=== PATIENT | male | born 1960 | race Caucasian/White ===

== ENCOUNTER 2019-02-11 12:11 | Outpatient (CLI) | payer BC, MEDICARE ==
[~2019-02-11 12:11] MED LIST: ALBU2.5V8 IH; ALPR1TAB6 PO; ASPI-253 PO; CARI350T PO; CRESTOR5 MG PO; ESOM40CA PO; FLUT1DIS3 IH; HYDROmorphone 2 MG/ML VIAL IV PRN; IV RINGERS,LACTATED 1000ML 1,000 ML IV SCH; LIDOCAINE 1% PF 2 ML VIAL. ID PRN; METF500T16 PO; METO-239 PO; MONT10TA6 PO; MORPHINE SULFATE 2 MG/ML VIAL. IV PRN; NITR0.4T SL; NITR1PAT73 TD; ONDANSETRON PF 4 MG/2 ML VIAL. IV PRN; OXYC20TA PO; OXYM10TA PO; OXYM40TA17 PO; PROCHLORPERAZINE 10 MG/2 ML VIAL. IV PRN; PROPOFOL 100 ML IV ONE; fentaNYL PF VIAL 100 MCG/2 ML VIAL IV PRN
[2019-02-11] MEDS ORDERED: PROPOFOL 20 ML IV ONE (12:35)
[2019-02-11] MEDS ORDERED: MIDAZOLAM HCL/PF 2 MG/2 ML VIAL. ONE (12:36)
[2019-02-11] MEDS ORDERED: KETAMINE HCL IN NACL, ISO-OSM 50 MG/5 ML SYRINGE ONE (12:36)
[2019-02-11] MEDS ORDERED: GADOBUTROL 10 MMOL/10 ML VIAL IV ONE (13:00)
[2019-02-11 14:40] VITALS: BP 130/58
--- NOTE | 2019-02-11 16:48 | RAD ---
MRI of the neck without and with contrast 02/11/2019 CLINICAL HISTORY: Swelling in the region of the left submandibular gland. TECHNIQUE: Unenhanced T1-weighted and inversion recovery sagittal, axial and coronal and diffusion-weighted axial images of the neck were obtained. After the intravenous administration of 10 cc of Gadavist, enhanced fat saturated T1-weighted sagittal, axial and coronal images were obtained. FINDINGS: Comparison is made to a CT scan of the neck dated 12/17/2018. The mucosal structures of the nasopharynx, oropharynx, hypopharynx and larynx are within normal limits. Fairly symmetric enlargement and fatty infiltration of both the parotid and submandibular glands is seen. No focal abnormality is noted. No abnormal soft tissue mass is seen. The visualized thyroid gland is within normal limits. Small reactive cervical lymph nodes are seen scattered throughout the neck. No cervical lymphadenopathy is noted. No abnormal fluid collection is seen. No area of abnormal contrast enhancement is seen. Moderate mucosal thickening is seen involving the right maxillary sinus. Degenerative changes are seen involving the uncovertebral and facet joints throughout the cervical disc spaces. IMPRESSION: Fairly symmetric enlargement and fatty infiltration of the parotid and submandibular glands is seen. No discrete mass lesion is noted. Electronically signed by: Marc Baeza MD (02/11/2019 4:45 PM) [id number]
== END 2019-02-11 14:42 | disposition home or self-care (01) ==
LOC: SURG 12:11
PROVIDERS: ATTEND Internal Medicine
DX: K11.1 Hypertrophy of salivary gland (principal)
CPT/HCPCS: 70543; J2250; J2704

== ENCOUNTER 2019-04-15 16:42 | Inpatient (IN) | payer BC, MEDICARE ==
[~2019-04-15] VITALS: Ht 175.3 cm; Wt 99.8 kg
[~2019-04-15 16:42] MED LIST changes: -HYDROmorphone 2 MG/ML VIAL IV PRN; -IV RINGERS,LACTATED 1000ML 1,000 ML IV SCH; -LIDOCAINE 1% PF 2 ML VIAL. ID PRN; +MONT10TA49 PO; -MONT10TA6 PO; -MORPHINE SULFATE 2 MG/ML VIAL. IV PRN; -ONDANSETRON PF 4 MG/2 ML VIAL. IV PRN; -PROCHLORPERAZINE 10 MG/2 ML VIAL. IV PRN; -PROPOFOL 100 ML IV ONE; -fentaNYL PF VIAL 100 MCG/2 ML VIAL IV PRN
--- NOTE | 2019-04-15 17:08 | PDOC1 ---
History and Physical Date of Admission Date of Admission DATE: 04/15/19 TIME: 17:07 Identification/Chief Complaint Chief Complaint Laryngeal edema Source Source: Chart review, Patient History of Present Illness History of Present Illness Mr Rutledge is a 58 year old male w/ PMHx Anxiety, Chronic pain, GERD, DM2?, COPD, CAD s/p stents, 2ppd smoker, SS throat cancer s/p treatment who presents to the ED from ENT for admission for throat infection. On laryngoscopy was noted with edematous laryngx and severe guy infection. He was seen by his PCP prior to this, had a negative throat culture for strep, but has dysphagia for a few days. Has previously had thrush, feels this is similar. Past Medical History Cardiovascular: CAD Pulmonary: COPD GI: GERD Heme/Onc: No pertinent hx Hepatobiliary: No pertinent hx Psych: Anxiety Musculoskeletal: low back pain Rheumatologic: No pertinent hx Infectious disease: Herpes zoster ENT: Other (Throat Ca) Renal/: No pertinent hx Endocrine: Diabetes Dermatology: No pertinent hx Past Surgical History Past Surgical History: Appendectomy, Arthroscopy, Cholecystectomy Family History Family History: High Cholestrol Social History Smoke: 2 packs per day ALCOHOL: rare Drugs: None Current Medications Current Medications Current Medications Methylprednisolone Sodium Succinate (SOLU-Medrol 125MG VIAL) 125 mg 1X ONCE IV ; Start 04/15/19 at 17:15; Stop 04/15/19 at 17:16 Famotidine (Pepcid Vial) 20 mg 1X ONCE IVP ; Start 04/15/19 at 17:15; Stop 04/15/19 at 17:16 Diphenhydramine HCl (Benadryl) 25 mg 1X ONCE IVP ; Start 04/15/19 at 17:15; Stop 04/15/19 at 17:16 Sodium Chloride 1,000 ml @ 1,000 mls/hr 1X ONCE IV ; Start 04/15/19 at 17:15; Stop 04/15/19 at 18:14; Status UNV Active Scripts Active Reported Soma (Carisoprodol) 350 Mg Tablet 1 Tab PO QHS Crestor (Rosuvastatin Calcium) 5 Mg Tablet 1.5 Mg PO QODAY Oxycodone Hcl 20 Mg Tablet 20 Mg PO PRN Q6-8HRS PRN Singulair Tablet (Montelukast Sodium) 10 Mg Tablet 10 Mg PO HS Ecotrin (Aspirin) 81 Mg Tablet.dr 81 Mg PO DAILY Nexium Capsule (Esomeprazole Magnesium) 40 Mg Capsule.dr 40 Mg PO DAILY Alprazolam 1 Mg Tablet 2 Mg PO HS Proair Hfa Inhaler (Albuterol Sulfate) 8.5 Gm Hfa.aer.ad 8.5 Gm IH DAILY Metoprolol Succinate ( Xl ) (Metoprolol Succinate) 25 Mg Tab.er.24h 12.5 Mg PO DAILY Metformin Hcl 500 Mg Tablet 500 Mg PO BID Advair 250-50 Diskus (Fluticasone/Salmeterol) 1 Each Disk.w.dev 1 Each IH DAILY Opana Er (Oxymorphone Hcl) 40 Mg Tab.er.12h 40 Mg PO TID Allergies Allergies: Coded Allergies: Iodinated Contrast- Oral and IV Dye (Verified Allergy, Severe, Swelling, 09/12/15) ROS General: YES: Fatigue, Malaise; No: Chills, Night Sweats, Appetite, Other PSYCHOLOGICAL ROS: YES: Anxiety; No: Behavioral Disorder, Concentration difficultie, Decreased libido, Depression, Disorientation, Hallucinations, Hostility, Irritablity, Memory difficulties, Mood Swings, Obsessive thoughts, Physical abuse, Sexual abuse, Sleep disturbances, Suicidal ideation, Other Eyes: No Blurry vision, No Decreased vision, No Double vision, No Dry eyes, No Excessive tearing, No Eye Pain, No Itchy Eyes, No Loss of vision, No Photophobia, No Scotomata, No Uses contacts, No Uses glasses, No Other HEENT: YES: Oral lesions, Sore Throat, Vocal changes; No: Heacaches, Visual Changes, Hearing change, Nasal congestion, Nasal discharge, Sinus pain, Epistaxis, Sneezing, Snoring, Tinnitus, Vertigo, Other ALLERGY AND IMMUNOLOGY: No: Hives, Insect Bite Sensitivity, Itchy/Watery Eyes, Nasal Congestion, Post Nasal Drip, Seasonal Allergies, Other Hematological and Lymphatic: No: Bleeding Problems, Blood Clots, Blood Transfusions, Brusing, Night Sweats, Pallor, Swollen Lymph Nodes, Other ENDOCRINE: No: Breast Changes, Galactorrhea, Hair Pattern Changes, Hot Flashes, Malaise/lethargy, Mood Swings, Palpitations, Polydipsia/polyuria, Skin Changes, Temperature Intolerance, Unexpected Weight Changes, Other Breast: No New/Changing Breast Lumps, No Nipple changes, No Nipple discharge, No Other Respiratory: No: Cough, Hemoptysis, Orthopnea, Pleuritic Pain, Shortness of patience ath, SOB with excertion, Sputum Changes, Stridor, Tachypnea, Wheezing, Other Cardiovascular: No Chest Pain, No Palpitations, No Orthopnea, No Paroxysmal Noc. Dyspnea, No Edema, No Lt Headedness, No Other Gastrointestinal: No Nausea, No Vomiting, No Abdominal Pain, No Diarrhea, No Constipation, No Melena, No Hematochezia, No Other Genitourinary: No Dysuria, No Frequency, No Incontinence, No Hematuria, No Retention, No Discharge, No Urgency, No Pain, No Flank Pain, No Other, No , No , No , No , No , No , No Physical Exam General: Alert, Oriented X3, Cooperative, No acute distress HEENT: Atraumatic, PERRLA, EOMI, Other (White plaques in oropharynx with surrounding erythema, Right cervical tender lymphadenopathy) Lungs: Other (scattered wheezes) Heart: S1S2, RRR, no gallops, no murmurs Abdomen: Normal bowel sounds, Soft, No tenderness, No hepatosplenomegaly, No masses Rectal Exam: not examined Extremities: No clubbing, No cyanosis, No edema, Normal pulses, No tenderness/swelling Skin: No rashes, No breakdown, No significant lesion Neuro: Normal gait, Normal speech, Strength at 5/5 X4 ext, Normal tone, Sensation intact, Cranial nerves 3-12 NL, Reflexes 2+ Psych/Mental Status: Mental status NL, Mood NL VTE Prophylaxis Ordered VTE Prophylaxis Devices: No VTE Pharmacological Prophylaxi: Yes Assessment/Plan Assessment/Plan A/P: Laryngeal swelling - steroids, benadryl, nebs. prn racemic epi. Consult ENT Thrush - will give fluconazole and oral mycelex muna Anxiety - cont xanxa Chronic pain - sees Dr. Forrester, cont regimen GERD - cont PPI DM2? - sliding scale while on steroids COPD - nebs CAD s/p stents - cont ASA 2ppd smoker - counseled on cessation, will place nicotine patch SS throat cancer - s/p treatment, ENT to see FEN - GI soft diet PPX - lovenox FULL CODE Inpatient for thrush with concern for laryngeal edema. ROBBIN DAVIDSON MD Apr 15, 2019 17:08
[2019-04-15] MEDS ORDERED: methylPREDNISolone SOD SUCC PF 125 MG/2 ML VIAL. IV ONE (17:15)
[2019-04-15] MEDS ORDERED: IV NORMAL SALINE 1000ML BAG 1,000 ML IV ONE (17:15)
[2019-04-15] MEDS ORDERED: FAMOTIDINE 20 MG/2 ML VIAL IVP ONE (17:15)
[2019-04-15] MEDS ORDERED: diphenhydrAMINE 50 MG/ML VIAL IVP ONE (17:15)
[2019-04-15 17:30] LABS: BASO % 0 % (0-3); EOS # 0.2 x10^3/uL (0.0-0.7); EOS % 1 % (0-3); HEMATOCRIT 46.6 % (39.0-53.0); HEMOGLOBIN 15.8 g/dL (13.0-17.5); LYMPH % 8 % (24-48); MEAN CORPUSCULAR HEMOGLOBIN 35 pg (25-35); MEAN CORPUSCULAR HGB CONC 34 g/dL (31-37); MEAN CORPUSCULAR VOLUME 103 fL (79-100); MONO # 1.1 x10^3/uL (0.0-1.1); MONO % 9 % (0-9); NEUT # 10.4 x10^3uL (1.8-7.7); NEUT % 82 % (31-73); PLATELET COUNT 213 x10^3/uL (140-400); RED BLOOD COUNT 4.51 x10^6/uL (4.30-5.70); RED CELL DISTRIBUTION WIDTH 13.9 % (11.5-14.5); WHITE BLOOD COUNT 12.6 x10^3/uL (4.0-11.0)
[2019-04-15] MEDS ORDERED: ONDANSETRON PF 4 MG/2 ML VIAL. IV PRN (17:30)
[2019-04-15] MEDS ORDERED: MORPHINE SULFATE 4 MG/ML VIAL. IV PRN (17:30)
--- NOTE | 2019-04-15 17:31 | PHYS DOC ---
Adult General Chief Complaint Chief Complaint: OTHER COMPLAINTS HPI HPI Patient is a 58 year old male with history of throat cancer and treated a couple years ago who presents to the ED today complaining of throat infection. Patient states he was sent to ENT for admission for throat infection. Review of Systems Review of Systems Constitutional: Denies fever or chills [] Eyes: Denies change in visual acuity, redness, or eye pain [] HENT: Reports throat infection. Denies nasal congestion Respiratory: Denies cough or shortness of breath [] Cardiovascular: No additional information not addressed in HPI [] GI: Denies abdominal pain, nausea, vomiting, bloody stools or diarrhea [] : Denies dysuria or hematuria [] Musculoskeletal: Denies back pain or joint pain [] Integument: Denies rash or skin lesions [] Neurologic: Denies headache, focal weakness or sensory changes [] All other systems were reviewed and found to be within normal limits, except as documented in this note. Current Medications Current Medications Current Medications Medications (Trade) Dose Ordered Sig/Juanita Start Time Stop Time Status Last Admin Dose Admin Diphenhydramine HCl (Benadryl) 25 mg 1X ONCE 04/15/19 17:15 04/15/19 17:16 DC Famotidine (Pepcid Vial) 20 mg 1X ONCE 04/15/19 17:15 04/15/19 17:16 DC Methylprednisolone Sodium Succinate (SOLU-Medrol 125MG VIAL) 125 mg 1X ONCE 04/15/19 17:15 04/15/19 17:16 DC Morphine Sulfate (Morphine Sulfate) 4 mg PRN Q2HR PRN 04/15/19 17:30 04/16/19 17:29 Ondansetron HCl (Zofran) 4 mg PRN Q8HRS PRN 04/15/19 17:30 04/16/19 17:29 Sodium Chloride 1,000 ml @ 1,000 mls/hr 1X ONCE 04/15/19 17:15 04/15/19 18:14 Allergies Allergies Allergies Coded Allergies Type Severity Reaction Last Updated Verified Iodinated Contrast- Oral and IV Dye Allergy Severe Swelling 09/12/15 Yes Physical Exam Physical Exam Constitutional: Well developed, well nourished, no acute distress, non-toxic appearance. [] HENT: Normocephalic, atraumatic, bilateral external ears normal, oropharynx mo ist, nose normal. Airway is open. Midline uvular Moderate amount of white patches noted on the throat. Eyes: PERRLA, EOMI, conjunctiva normal, no discharge. [] Neck: Normal range of motion, no tenderness, supple, no stridor. [] Cardiovascular:Heart rate regular rhythm, no murmur [] Lungs & Thorax: Bilateral breath sounds clear to auscultation [] Abdomen: Bowel sounds normal, soft, no tenderness, no masses, no pulsatile masses. [] Skin: Warm, dry, no erythema, no rash. [] Back: No tenderness, no CVA tenderness. [] Extremities: No tenderness, no cyanosis, no clubbing, ROM intact, no edema. [] Neurologic: Alert and oriented X 3, normal motor function, normal sensory function, no focal deficits noted. [] Psychologic: Affect normal, judgement normal, mood normal. [] Current Patient Data Lab Values Laboratory Tests Test 04/15/19 17:20 White Blood Count 12.6 x10^3/uL (4.0-11.0) H Red Blood Count 4.51 x10^6/uL (4.30-5.70) Hemoglobin 15.8 g/dL (13.0-17.5) Hematocrit 46.6 % (39.0-53.0) Mean Corpuscular Volume 103 fL (79-100) H Mean Corpuscular Hemoglobin 35 pg (25-35) Mean Corpuscular Hemoglobin Concent 34 g/dL (31-37) Red Cell Distribution Width 13.9 % (11.5-14.5) Platelet Count 213 x10^3/uL (140-400) Neutrophils (%) (Auto) 82 % (31-73) H Lymphocytes (%) (Auto) 8 % (24-48) L Monocytes (%) (Auto) 9 % (0-9) Eosinophils (%) (Auto) 1 % (0-3) Basophils (%) (Auto) 0 % (0-3) Neutrophils # (Auto) 10.4 x10^3uL (1.8-7.7) H Lymphocytes # (Auto) 1.0 x10^3/uL (1.0-4.8) Monocytes # (Auto) 1.1 x10^3/uL (0.0-1.1) Eosinophils # (Auto) 0.2 x10^3/uL (0.0-0.7) Basophils # (Auto) 0.0 x10^3/uL (0.0-0.2) Laboratory Tests 04/15/19 17:20 EKG EKG [] Radiology/Procedures Radiology/Procedures [] Course & Med Decision Making Course & Med Decision Making Pertinent Labs and Imaging studies reviewed. (See chart for details) This is a 58-year-old male patient who presents to the ED today for throat infection, patient has history of throat cancer. He was sent to the ED to be a dmitted. very upset stating they were sent to be admitted and not to be seen in the ED. I spoke with Dr. Ibrahim who stated there was concern for airway edema hence the reason they need to be seen in the ED. He requested we access patient, get labwork as well as get an x-rays of the neck and give him steroids. Patient's airway is open.He is currently drinking Sprite which he will not give up. Steroids were ordered. Dragon Disclaimer Dragon Disclaimer This electronic medical record was generated, in whole or in part, using a voice recognition dictation system. Departure Departure Impression: Primary Impression: Laryngeal edema Additional Impression: Throat infection Disposition: ADMITTED INPATIENT Condition: STABLE Referrals: JASMINA CEBALLOS MD (PCP) Problem Qualifiers OJHNNY GAN APRN Apr 15, 2019 17:31
[2019-04-15 17:45] LABS: CALCIUM 9.6 mg/dL (8.5-10.1); CREATININE 0.9 mg/dL (0.7-1.3); POTASSIUM 3.5 mmol/L (3.5-5.1)
[2019-04-15 17:50] LABS: TOTAL BILIRUBIN 0.8 mg/dL (0.2-1.0)
[2019-04-15 18:15] VITALS: BP 127/68
[2019-04-15 19:00] VITALS: BP 108/63
[2019-04-15] MEDS ORDERED: RANI-376 PO (19:45)
[2019-04-15] MEDS ORDERED: ALPR0.5T PO (19:45)
[2019-04-15] MEDS ORDERED: ASPI-612 PO (19:45)
[2019-04-15] MEDS ORDERED: AZIT250T6 PO (19:45)
[2019-04-15] MEDS ORDERED: OMEP40CA5 PO (19:45)
[2019-04-15] MEDS ORDERED: ALBUTEROL SULFATE 2.5 MG/3 ML NEBU. NEB PRN (20:00)
[2019-04-15] MEDS ORDERED: ALPRAZolam 0.5 MG TABLET PO PRN (20:00)
[2019-04-15] MEDS ORDERED: diphenhydrAMINE 50 MG/ML VIAL IVP PRN (20:00)
[2019-04-15] MEDS ORDERED: NICOTINE 21MG PATCH. TD PRN (20:15)
--- NOTE | 2019-04-15 20:22 | NUR ---
Patient admission Pt arrived to the unit a little before shift change. Family at bedside. Patient information guide packet was explained and given to pt. All questions and concerns regarding pt's POC was addressed and answered at this time. Pt and family verbalized understanding. Will continue to monitor pt closely.
[2019-04-15] MEDS ORDERED: DEXTROSE 50% 25 GM / 50ML DISP.SYRIN. IV PRN (20:45)
[2019-04-15] MEDS: FLUCONAZOLE 100 MG TABLET. PO SCH (20:55)
[2019-04-15] MEDS: oxyCODONE ER 15 MG TAB.ER.12H PO SCH (21:00)
[2019-04-15] MEDS ORDERED: ASPIRIN ENTERIC COATED 81 MG TABLET.DR. PO SCH (21:00)
[2019-04-15] MEDS ORDERED: FAMOTIDINE 20 MG TABLET. PO PRN (21:00)
[2019-04-15] MEDS: IPRATRPIUM/ALBUTEROL 0.5/2.5MG 3 ML NEBU. NEB SCH (21:00)
[2019-04-15] MEDS: methylPREDNISolone SOD SUCC PF 40 MG/ML VIAL. IV SCH (22:08)
[2019-04-15] MEDS: CLOTRIMAZOLE 10 MG TROCHE. MM SCH (22:08)
[2019-04-15 23:00] VITALS: BP 119/51
[2019-04-16 03:00] VITALS: BP 140/63
[2019-04-16] MEDS: CLOTRIMAZOLE 10 MG TROCHE. MM SCH ×4 (06:22→18:00)
[2019-04-16] MEDS: methylPREDNISolone SOD SUCC PF 40 MG/ML VIAL. IV SCH ×2 (06:23→13:11)
[2019-04-16 07:00] VITALS: BP 121/53
[2019-04-16] MEDS ORDERED: PANTOPRAZOLE 40 MG TABLET.DR. PO SCH (07:30)
[2019-04-16] MEDS: IPRATRPIUM/ALBUTEROL 0.5/2.5MG 3 ML NEBU. NEB SCH ×3 (07:46→16:28)
--- NOTE | 2019-04-16 07:47 | PDOC ---
PROGRESS NOTES Subjective Subjective Patient reports feeling much improved overnight. He reports throat pain is much improved. He is now able to swallow more. Objective Objective Vital Signs Date Time Temp Pulse Resp B/P (MAP) Pulse Ox O2 Delivery O2 Flow Rate FiO2 04/16/19 03:00 97.7 63 18 140/63 (88) 91 Room Air 97.7 Physical Exam Allegies Allergies Coded Allergies Type Severity Reaction Last Updated Verified Iodinated Contrast- Oral and IV Dye Allergy Severe Swelling 09/12/15 Yes Physical Exam Nose: septum deviated to right Oral Cavity/Oropharynx: White patches with surrounding erythema persisted along distal soft palate, lateral pharyngeal wall bilaterally, Tongue is brown discoloration with thickened exudate Abdomen: Normal bowel sounds, Soft, No tenderness, No masses Heart: Regular rate Extremities: No clubbing, No cyanosis, No edema, Normal pulses, No tende rness/swelling General: Alert, Oriented X3, Cooperative, No acute distress HEENT: Atraumatic, PERRLA, EOMI, Other (White plaques in oropharynx with surrounding erythema, Right cervical tender lymphadenopathy) Lungs: Other (scattered wheezes) Neuro: Normal gait, Normal speech, Strength at 5/5 X4 ext, Normal tone, Sensation intact, Cranial nerves 3-12 NL, Reflexes 2+ Psych/Mental Status: Mental status NL, Mood NL Skin: No rashes, No breakdown, No significant lesion COMMENT Procedure Note: Flexible Fiberoptic laryngoscopy Findings: Whitish exudate continues to be present covering larynx and right pyriform sinus. This is also present in nasopharynx. Normal vocal cord mobility. Epiglottis edema has significantly improved compared to yesterday Description: I anesthetized nasal mucosa with 4% lidocaine/Afrin mixture. I then used fiberoptic laryngoscope through left nasal cavity to visualize nasopharynx, oropharynx, base of tongue, laryngeal structures. Findings as above. Patient tolerated procedure well. 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 He presented back to ENT clinic yesterday with acute oropharyngeal and laryngeal candidiasis with severe supraglottic edema. Patient's airway swelling has improved with IV steroids. Laryngeal and oropharyngeal candidiasis persist. He is tolerating oral intake. Plan Plan of Care 1. Patient desires hospital discharge as soon as possible. Overall, laryngeal edema has improved. However, laryngeal and oropharyngeal candidiasis has not improved. 2. Patient to continue clotrimazole 5 times daily and diflucan 100mg daily. 3. Discussed with patient continued observation. If continues to improve, may consider discharge this evening after completing another dose of steroids, 24 hours of antifungal medications. Comment Review of Relevant I have reviewed the following items bienvenido (where applicable) has been applied. Labs Laboratory Tests Test 04/15/19 17:20 04/15/19 20:47 White Blood Count 12.6 x10^3/uL (4.0-11.0) Red Blood Count 4.51 x10^6/uL (4.30-5.70) Hemoglobin 15.8 g/dL (13.0-17.5) Hematocrit 46.6 % (39.0-53.0) Mean Corpuscular Volume 103 fL (79-100) Mean Corpuscular Hemoglobin 35 pg (25-35) Mean Corpuscular Hemoglobin Concent 34 g/dL (31-37) Red Cell Distribution Width 13.9 % (11.5-14.5) Platelet Count 213 x10^3/uL (140-400) Neutrophils (%) (Auto) 82 % (31-73) Lymphocytes (%) (Auto) 8 % (24-48) Monocytes (%) (Auto) 9 % (0-9) Eosinophils (%) (Auto) 1 % (0-3) Basophils (%) (Auto) 0 % (0-3) Neutrophils # (Auto) 10.4 x10^3uL (1.8-7.7) Lymphocytes # (Auto) 1.0 x10^3/uL (1.0-4.8) Monocytes # (Auto) 1.1 x10^3/uL (0.0-1.1) Eosinophils # (Auto) 0.2 x10^3/uL (0.0-0.7) Basophils # (Auto) 0.0 x10^3/uL (0.0-0.2) Sodium Level 140 mmol/L (136-145) Potassium Level 3.5 mmol/L (3.5-5.1) Chloride Level 100 mmol/L (98-107) Carbon Dioxide Level 31 mmol/L (21-32) Anion Gap 9 (6-14) Blood Urea Nitrogen 7 mg/dL (8-26) Creatinine 0.9 mg/dL (0.7-1.3) Estimated GFR (Cockcroft-Gault) 87.0 BUN/Creatinine Ratio 8 (6-20) Glucose Level 151 mg/dL (70-99) Lactic Acid Level 1.6 mmol/L (0.4-2.0) Calcium Level 9.6 mg/dL (8.5-10.1) Total Bilirubin 0.8 mg/dL (0.2-1.0) Aspartate Amino Transf (AST/SGOT) 11 U/L (15-37) Alanine Aminotransferase (ALT/SGPT) 18 U/L (16-63) Alkaline Phosphatase 94 U/L (46-116) Total Protein 8.0 g/dL (6.4-8.2) Albumin 4.0 g/dL (3.4-5.0) Albumin/Globulin Ratio 1.0 (1.0-1.7) Glucose (Fingerstick) 198 mg/dL (70-99) Medications Current Medications Albuterol Sulfate (Ventolin Neb Soln) 2.5 mg PRN Q6HRS PRN NEB SHORTNESS OF BREATH Last administered on 04/15/19at 22:03; Start 04/15/19 at 20:00 Albuterol/ Ipratropium (Duoneb) 3 ml RTQID NEB ; Start 04/15/19 at 21:00 Alprazolam (Xanax) 0.5 mg PRN QHS PRN PO INSOMNIA Last administered on 04/15/19at 20:54; Start 04/15/19 at 20:00 Aspirin (Ecotrin) 81 mg HS PO Last administered on 04/15/19at 20:53; Start 04/15/19 at 21:00 Azithromycin (Zithromax) 250 mg DAILY PO ; Start 04/16/19 at 09:00 Clotrimazole (Mycelex) 10 mg 5XDAY MM Last administered on 04/16/19at 06:22; Start 04/15/19 at 22:00 Dextrose (Dextrose 50%-Water Syringe) 12.5 gm PRN Q15MIN PRN IV SEE COMMENTS; Start 04/15/19 at 20:45 Diphenhydramine HCl (Benadryl) 25 mg 1X ONCE IVP Last administered on 04/15/19at 17:48; Start 04/15/19 at 17:15; Stop 04/15/19 at 17:16; Status DC Diphenhydramine HCl (Benadryl) 25 mg PRN Q6HRS PRN IVP ITCHING; Start 04/15/19 at 20:00 Famotidine (Pepcid Vial) 20 mg 1X ONCE IVP Last administered on 04/15/19at 17:48; Start 04/15/19 at 17:15; Stop 04/15/19 at 17:16; Status DC Famotidine (Pepcid) 20 mg PRN DAILY PRN PO HEARTBURN/GAS; Start 04/15/19 at 21:00 Fluconazole (Diflucan) 100 mg DAILY PO Last administered on 04/15/19at 20:55; Start 04/15/19 at 20:45 Insulin Human Lispro (HumaLOG) 0-5 UNITS TIDWMEALS SQ ; Start 04/16/19 at 08:00 Methylprednisolone Sodium Succinate (SOLU-Medrol 40MG VIAL) 40 mg Q8HRS IV Last administered on 04/16/19at 06:23; Start 04/15/19 at 22:00 Methylprednisolone Sodium Succinate (SOLU-Medrol 125MG VIAL) 125 mg 1X ONCE IV Last administered on 04/15/19at 17:48; Start 04/15/19 at 17:15; Stop 04/15/19 at 17:16; Status DC Metoprolol Succinate (Toprol Xl) 12.5 mg DAILY PO ; Start 04/16/19 at 09:00 Morphine Sulfate (Morphine Sulfate) 4 mg PRN Q2HR PRN IV PAIN; Start 04/15/19 at 17:30; Stop 04/16/19 at 17:29 Nicotine (Nicoderm Cq 21mg) 1 patch DAILY TD ; Start 04/16/19 at 09:00; Stop 04/16/19 at 09:00; Status DC Nicotine (Nicoderm Cq 21mg) 1 patch PRN DAILY PRN TD SMOKING CESSATION Last administered on 04/15/19at 20:55; Start 04/15/19 at 20:15 Ondansetron HCl (Zofran) 4 mg PRN Q8HRS PRN IV NAUSEA/VOMITING; Start 04/15/19 at 17:30; Stop 04/17/19 at 17:28 Oxycodone HCl (OxyCONTIN) 60 mg Q12HR PO ; Start 04/15/19 at 21:00 Oxycodone HCl (Roxicodone) 30 mg PRN Q4HRS PRN PO SEVERE PAIN Last administered on 04/16/19at 03:48; Start 04/15/19 at 20:15 Pantoprazole Sodium (Protonix) 40 mg DAILYAC PO ; Start 04/16/19 at 07:30 Sodium Chloride 1,000 ml @ 1,000 mls/hr 1X ONCE IV Last administered on 04/15/19at 17:47; Start 04/15/19 at 17:15; Stop 04/15/19 at 18:14; Status DC Vitals/I & O Vital Sign - Last 24 Hours 04/15/19 04/15/19 04/15/19 04/15/19 17:20 18:15 19:00 20:09 Temp 98.5 98.4 98.8 98.5 98.4 98.8 Pulse 76 72 70 Resp 18 16 18 B/P (MAP) 168/87 (114) 127/68 (87) 108/63 (78) Pulse Ox 97 94 96 O2 Delivery Room Air Room Air Room Air Room Air 04/15/19 04/15/19 04/15/19 04/16/19 21:54 22:04 23:00 03:00 Temp 97.7 97.7 97.7 97.7 Pulse 69 63 Resp 18 18 B/P (MAP) 119/51 (73) 140/63 (88) Pulse Ox 96 94 95 91 O2 Delivery Room Air Room Air Room Air Room Air CARRIE STEWART MD Apr 16, 2019 07:47
[2019-04-16] MEDS: INSULIN LISPRO 300 UNITS/3 ML INSULN.PEN. SQ SCH ×3 (08:00→17:00)
[2019-04-16] MEDS: FLUCONAZOLE 100 MG TABLET. PO SCH (08:57)
[2019-04-16] MEDS: oxyCODONE ER 15 MG TAB.ER.12H PO SCH (09:00)
[2019-04-16] MEDS ORDERED: METOPROLOL SUCC 24HR ER 25 MG TAB.ER.24H. PO SCH (09:00)
[2019-04-16] MEDS ORDERED: AZITHROMYCIN 250 MG TABLET. PO SCH (09:00)
[2019-04-16] MEDS ORDERED: NICOTINE 21MG PATCH. TD SCH (09:00)
--- NOTE | 2019-04-16 09:00 | RAD ---
EXAM: CERVICAL SPINE 2-3V. HISTORY: Head/neck cancer, dyspnea. COMPARISON: None. FINDINGS: The epiglottis is thickened. There is no prevertebral soft tissue swelling. Carotid atherosclerotic calcifications are noted. No fractures are identified. There is a mild cervical dextrocurvature. Degenerative disc disease is mild from C4 through C7. Facet osteoarthritis is moderate from C2 through C4. IMPRESSION: 1. Epiglottic thickening most likely reflects posttreatment change. Ongoing clinical follow-up of dyspnea or dysphagia is recommended. 2. No suspicious lesions by radiographs. Degenerative changes as above. Electronically signed by: Jasmin Vidal MD (04/16/2019 8:57 AM) [facility]
--- NOTE | 2019-04-16 10:24 | PDOC ---
PROGRESS NOTES History of Present Illness History of Present Illness 58 year old male with history of T1N0M0 left vocal cord cancer s/p XRT in 2015. He presented back to ENT clinic 04/14 with acute oropharyngeal and laryngeal candidiasis with severe supraglottic edema. Patient's airway swelling has improved with IV steroids. Laryngeal and oropharyngeal candidiasis noted VTE Prophylaxis Ordered VTE Prophylaxis Devices: No VTE Pharmacological Prophylaxi: Yes Assessment/Plan Assessment/Plan Laryngeal swelling - steroids, benadryl, nebs. prn racemic epi. ENT following Thrush - will give fluconazole and oral mycelex muna Anxiety - cont xanxa Chronic pain - sees Dr. Forrester, cont regimen GERD - cont PPI DM2? - sliding scale while on steroids COPD - nebs CAD s/p stents - cont ASA 2ppd smoker - counseled on cessation, will place nicotine patch SS throat cancer - s/p treatment, ENT to see FEN - GI soft diet PPX - lovenox FULL CODE Inpatient for thrush with concern for laryngeal edema. glucose uncontrolled 04/16, will monitor Vitals Vitals Vital Signs Date Time Temp Pulse Resp B/P (MAP) Pulse Ox O2 Delivery O2 Flow Rate FiO2 04/16/19 09:00 16 Room Air 04/16/19 08:58 72 121/53 04/16/19 07:46 95 04/16/19 07:00 97.5 97.5 Physical Exam General: Alert, Oriented X3, Cooperative, No acute distress Heart: Regular rate Lungs: Clear Abdomen: Normal bowel sounds, Soft, No tenderness, No masses Extremities: No clubbing, No cyanosis, No edema, Normal pulses, No tenderness/swelling Skin: No rashes, No breakdown, No significant lesion Labs LABS Laboratory Tests Test 04/15/19 17:20 04/15/19 20:47 04/16/19 07:54 White Blood Count 12.6 x10^3/uL (4.0-11.0) Red Blood Count 4.51 x10^6/uL (4.30-5.70) Hemoglobin 15.8 g/dL (13.0-17.5) Hematocrit 46.6 % (39.0-53.0) Mean Corpuscular Volume 103 fL (79-100) Mean Corpuscular Hemoglobin 35 pg (25-35) Mean Corpuscular Hemoglobin Concent 34 g/dL (31-37) Red Cell Distribution Width 13.9 % (11.5-14.5) Platelet Count 213 x10^3/uL (140-400) Neutrophils (%) (Auto) 82 % (31-73) Lymphocytes (%) (Auto) 8 % (24-48) Monocytes (%) (Auto) 9 % (0-9) Eosinophils (%) (Auto) 1 % (0-3) Basophils (%) (Auto) 0 % (0-3) Neutrophils # (Auto) 10.4 x10^3uL (1.8-7.7) Lymphocytes # (Auto) 1.0 x10^3/uL (1.0-4.8) Monocytes # (Auto) 1.1 x10^3/uL (0.0-1.1) Eosinophils # (Auto) 0.2 x10^3/uL (0.0-0.7) Basophils # (Auto) 0.0 x10^3/uL (0.0-0.2) Sodium Level 140 mmol/L (136-145) Potassium Level 3.5 mmol/L (3.5-5.1) Chloride Level 100 mmol/L (98-107) Carbon Dioxide Level 31 mmol/L (21-32) Anion Gap 9 (6-14) Blood Urea Nitrogen 7 mg/dL (8-26) Creatinine 0.9 mg/dL (0.7-1.3) Estimated GFR (Cockcroft-Gault) 87.0 BUN/Creatinine Ratio 8 (6-20) Glucose Level 151 mg/dL (70-99) Lactic Acid Level 1.6 mmol/L (0.4-2.0) Calcium Level 9.6 mg/dL (8.5-10.1) Total Bilirubin 0.8 mg/dL (0.2-1.0) Aspartate Amino Transf (AST/SGOT) 11 U/L (15-37) Alanine Aminotransferase (ALT/SGPT) 18 U/L (16-63) Alkaline Phosphatase 94 U/L (46-116) Total Protein 8.0 g/dL (6.4-8.2) Albumin 4.0 g/dL (3.4-5.0) Albumin/Globulin Ratio 1.0 (1.0-1.7) Glucose (Fingerstick) 198 mg/dL (70-99) 146 mg/dL (70-99) Assessment and Plan Assessmemt and Plan Problems Medical Problems: (1) Laryngeal edema Status: Acute (2) Throat infection Status: Acute Comment Review of Relevant I have reviewed the following items bienvenido (where applicable) has been applied. Labs Laboratory Tests Test 04/15/19 17:20 04/15/19 20:47 04/16/19 07:54 White Blood Count 12.6 x10^3/uL (4.0-11.0) Red Blood Count 4.51 x10^6/uL (4.30-5.70) Hemoglobin 15.8 g/dL (13.0-17.5) Hematocrit 46.6 % (39.0-53.0) Mean Corpuscular Volume 103 fL (79-100) Mean Corpuscular Hemoglobin 35 pg (25-35) Mean Corpuscular Hemoglobin Concent 34 g/dL (31-37) Red Cell Distribution Width 13.9 % (11.5-14.5) Platelet Count 213 x10^3/uL (140-400) Neutrophils (%) (Auto) 82 % (31-73) Lymphocytes (%) (Auto) 8 % (24-48) Monocytes (%) (Auto) 9 % (0-9) Eosinophils (%) (Auto) 1 % (0-3) Basophils (%) (Auto) 0 % (0-3) Neutrophils # (Auto) 10.4 x10^3uL (1.8-7.7) Lymphocytes # (Auto) 1.0 x10^3/uL (1.0-4.8) Monocytes # (Auto) 1.1 x10^3/uL (0.0-1.1) Eosinophils # (Auto) 0.2 x10^3/uL (0.0-0.7) Basophils # (Auto) 0.0 x10^3/uL (0.0-0.2) Sodium Level 140 mmol/L (136-145) Potassium Level 3.5 mmol/L (3.5-5.1) Chloride Level 100 mmol/L (98-107) Carbon Dioxide Level 31 mmol/L (21-32) Anion Gap 9 (6-14) Blood Urea Nitrogen 7 mg/dL (8-26) Creatinine 0.9 mg/dL (0.7-1.3) Estimated GFR (Cockcroft-Gault) 87.0 BUN/Creatinine Ratio 8 (6-20) Glucose Level 151 mg/dL (70-99) Lactic Acid Level 1.6 mmol/L (0.4-2.0) Calcium Level 9.6 mg/dL (8.5-10.1) Total Bilirubin 0.8 mg/dL (0.2-1.0) Aspartate Amino Transf (AST/SGOT) 11 U/L (15-37) Alanine Aminotransferase (ALT/SGPT) 18 U/L (16-63) Alkaline Phosphatase 94 U/L (46-116) Total Protein 8.0 g/dL (6.4-8.2) Albumin 4.0 g/dL (3.4-5.0) Albumin/Globulin Ratio 1.0 (1.0-1.7) Glucose (Fingerstick) 198 mg/dL (70-99) 146 mg/dL (70-99) Laboratory Tests Test 04/15/19 17:20 04/15/19 20:47 04/16/19 07:54 White Blood Count 12.6 x10^3/uL (4.0-11.0) Red Blood Count 4.51 x10^6/uL (4.30-5.70) Hemoglobin 15.8 g/dL (13.0-17.5) Hematocrit 46.6 % (39.0-53.0) Mean Corpuscular Volume 103 fL (79-100) Mean Corpuscular Hemoglobin 35 pg (25-35) Mean Corpuscular Hemoglobin Concent 34 g/dL (31-37) Red Cell Distribution Width 13.9 % (11.5-14.5) Platelet Count 213 x10^3/uL (140-400) Neutrophils (%) (Auto) 82 % (31-73) Lymphocytes (%) (Auto) 8 % (24-48) Monocytes (%) (Auto) 9 % (0-9) Eosinophils (%) (Auto) 1 % (0-3) Basophils (%) (Auto) 0 % (0-3) Neutrophils # (Auto) 10.4 x10^3uL (1.8-7.7) Lymphocytes # (Auto) 1.0 x10^3/uL (1.0-4.8) Monocytes # (Auto) 1.1 x10^3/uL (0.0-1.1) Eosinophils # (Auto) 0.2 x10^3/uL (0.0-0.7) Basophils # (Auto) 0.0 x10^3/uL (0.0-0.2) Sodium Level 140 mmol/L (136-145) Potassium Level 3.5 mmol/L (3.5-5.1) Chloride Level 100 mmol/L (98-107) Carbon Dioxide Level 31 mmol/L (21-32) Anion Gap 9 (6-14) Blood Urea Nitrogen 7 mg/dL (8-26) Creatinine 0.9 mg/dL (0.7-1.3) Estimated GFR (Cockcroft-Gault) 87.0 BUN/Creatinine Ratio 8 (6-20) Glucose Level 151 mg/dL (70-99) Lactic Acid Level 1.6 mmol/L (0.4-2.0) Calcium Level 9.6 mg/dL (8.5-10.1) Total Bilirubin 0.8 mg/dL (0.2-1.0) Aspartate Amino Transf (AST/SGOT) 11 U/L (15-37) Alanine Aminotransferase (ALT/SGPT) 18 U/L (16-63) Alkaline Phosphatase 94 U/L (46-116) Total Protein 8.0 g/dL (6.4-8.2) Albumin 4.0 g/dL (3.4-5.0) Albumin/Globulin Ratio 1.0 (1.0-1.7) Glucose (Fingerstick) 198 mg/dL (70-99) 146 mg/dL (70-99) Medications Current Medications Methylprednisolone Sodium Succinate (SOLU-Medrol 125MG VIAL) 125 mg 1X ONCE IV Last administered on 04/15/19at 17:48; Start 04/15/19 at 17:15; Stop 04/15/19 at 17:16; Status DC Famotidine (Pepcid Vial) 20 mg 1X ONCE IVP Last administered on 04/15/19at 17:48; Start 04/15/19 at 17:15; Stop 04/15/19 at 17:16; Status DC Diphenhydramine HCl (Benadryl) 25 mg 1X ONCE IVP Last administered on 04/15/19at 17:48; Start 04/15/19 at 17:15; Stop 04/15/19 at 17:16; Status DC Sodium Chloride 1,000 ml @ 1,000 mls/hr 1X ONCE IV Last administered on 04/15/19 17:47; Start 04/15/19 at 17:15; Stop 04/15/19 at 18:14; Status DC Ondansetron HCl (Zofran) 4 mg PRN Q8HRS PRN IV NAUSEA/VOMITING; Start 04/15/19 at 17:30; Stop 04/17/19 at 17:28 Morphine Sulfate (Morphine Sulfate) 4 mg PRN Q2HR PRN IV PAIN; Start 04/15/19 at 17:30; Stop 04/16/19 at 17:29 Albuterol Sulfate (Ventolin Neb Soln) 2.5 mg PRN Q6HRS PRN NEB SHORTNESS OF BREATH Last administered on 04/15/19 22:03; Start 04/15/19 at 20:00 Alprazolam (Xanax) 0.5 mg PRN QHS PRN PO INSOMNIA Last administered on 04/15/19 20:54; Start 04/15/19 at 20:00 Aspirin (Ecotrin) 81 mg HS PO Last administered on 04/15/19 20:53; Start 04/15/19 at 21:00 Azithromycin (Zithromax) 250 mg DAILY PO Last administered on 04/16/19 08:57; Start 04/16/19 at 09:00 Metoprolol Succinate (Toprol Xl) 12.5 mg DAILY PO Last administered on 04/16/19 08:58; Start 04/16/19 at 09:00 Pantoprazole Sodium (Protonix) 40 mg DAILYAC PO Last administered on 04/16/19 08:56; Start 04/16/19 at 07:30 Oxycodone HCl (Roxicodone) 30 mg PRN Q4HRS PRN PO SEVERE PAIN Last administered on 04/16/19 03:48; Start 04/15/19 at 20:15 Oxycodone HCl (OxyCONTIN) 60 mg Q12HR PO Last administered on 04/16/19 09:00; Start 04/15/19 at 21:00 Famotidine (Pepcid) 20 mg PRN DAILY PRN PO HEARTBURN/GAS; Start 04/15/19 at 21:00 Clotrimazole (Mycelex) 10 mg 5XDAY MM Last administered on 04/16/19at 08:57; Start 04/15/19 at 22:00 Nicotine (Nicoderm Cq 21mg) 1 patch DAILY TD ; Start 04/16/19 at 09:00; Stop 04/16/19 at 09:00; Status DC Diphenhydramine HCl (Benadryl) 25 mg PRN Q6HRS PRN IVP ITCHING; Start 04/15/19 at 20:00 Methylprednisolone Sodium Succinate (SOLU-Medrol 40MG VIAL) 40 mg Q8HRS IV Last administered on 04/16/19at 06:23; Start 04/15/19 at 22:00 Nicotine (Nicoderm Cq 21mg) 1 patch PRN DAILY PRN TD SMOKING CESSATION Last administered on 04/15/19at 20:55; Start 04/15/19 at 20:15 Insulin Human Lispro (HumaLOG) 0-5 UNITS TIDWMEALS SQ ; Start 04/16/19 at 08:00 Dextrose (Dextrose 50%-Water Syringe) 12.5 gm PRN Q15MIN PRN IV SEE COMMENTS; Start 04/15/19 at 20:45 Fluconazole (Diflucan) 100 mg DAILY PO Last administered on 04/16/19at 08:57; Start 04/15/19 at 20:45 Albuterol/ Ipratropium (Duoneb) 3 ml RTQID NEB Last administered on 04/16/19at 07:46; Start 04/15/19 at 21:00 Active Scripts Active Reported Azithromycin Tablet (Azithromycin) 250 Mg Tablet 250 Mg PO DAILY Aspirin Ec (Aspirin) 81 Mg Tablet.dr 1 Tab PO HS Omeprazole 40 Mg Capsule.dr 1 Cap PO DAILY Zantac (Ranitidine Hcl) 150 Mg Tablet 150 Mg PO DAILY PRN Xanax (Alprazolam) 0.5 Mg Tablet 0.5 Mg PO HS PRN Oxycodone Hcl 20 Mg Tablet 30 Mg PO PRN Q4-6HRS PRN Proair Hfa Inhaler (Albuterol Sulfate) 8.5 Gm Hfa.aer.ad 8.5 Gm IH Q6HRS PRN Metoprolol Succinate ( Xl ) (Metoprolol Succinate) 25 Mg Tab.er.24h 12.5 Mg PO DAILY Opana Er (Oxymorphone Hcl) 40 Mg Tab.er.12h 30 Mg PO Q12HR Vitals/I & O Vital Sign - Last 24 Hours 04/15/19 04/15/19 04/15/19 04/15/19 17:20 18:15 19:00 20:09 Temp 98.5 98.4 98.8 98.5 98.4 98.8 Pulse 76 72 70 Resp 18 16 18 B/P (MAP) 168/87 (114) 127/68 (87) 108/63 (78) Pulse Ox 97 94 96 O2 Delivery Room Air Room Air Room Air Room Air 04/15/19 04/15/19 04/15/19 04/16/19 21:54 22:04 23:00 03:00 Temp 97.7 97.7 97.7 97.7 Pulse 69 63 Resp 18 18 B/P (MAP) 119/51 (73) 140/63 (88) Pulse Ox 96 94 95 91 O2 Delivery Room Air Room Air Room Air Room Air 04/16/19 04/16/19 04/16/19 04/16/19 07:00 07:46 08:58 09:00 Temp 97.5 97.5 Pulse 72 72 Resp 18 16 B/P (MAP) 121/53 (75) 121/53 Pulse Ox 95 95 O2 Delivery Room Air Room Air Room Air SRIRAM EAGLE MD Apr 16, 2019 10:24
[2019-04-16 10:44] VITALS: BP 92/47
[2019-04-16 15:07] VITALS: BP 120/47
--- NOTE | 2019-04-16 18:21 | NUR ---
Discharge Note: DHIRAJ FOY [address] [place] [address] Discharge instructions and discharge home medications reviewed with Spouse and a copy given. All questions have been answered and understanding verbalized. The following instructions and handouts were given: ABT&R, guy infection Discontinued lines and drains: peripheral iv. Patient discharged to Home w/ Self Care with son via Ambulated Meds called in to [facility] in [place]
== END 2019-04-16 18:28 | disposition home or self-care (01) | DRG 158 ==
LOC: ER 16:42 → 5 NORTH 17:16
PROVIDERS: ADMIT Internal Medicine; ATTEND Internal Medicine
DX: B37.0 Candidal stomatitis (principal); B37.89 Other sites of candidiasis; J02.9 Acute pharyngitis, unspecified; J38.4 Edema of larynx; C14.0 Malignant neoplasm of pharynx, unspecified; E11.9 Type 2 diabetes mellitus without complications; F17.210 Nicotine dependence, cigarettes, uncomplicated; F41.9 Anxiety disorder, unspecified; G89.29 Other chronic pain; I25.10 Atherosclerotic heart disease of native coronary artery without angina pectoris; M54.5 Low back pain; J44.9 Chronic obstructive pulmonary disease, unspecified; K21.9 Gastro-esophageal reflux disease without esophagitis; Z85.21 Personal history of malignant neoplasm of larynx; Z85.819 Personal history of malignant neoplasm of unspecified site of lip, oral cavity, and pharynx; Z95.5 Presence of coronary angioplasty implant and graft; Z92.3 Personal history of irradiation; Z71.6 Tobacco abuse counseling
CPT/HCPCS: 36415; 72040; 80053; 82962; 83605; 85025; 87040; 94640; 94760; 96361; 96374; 96375; J1200; J1815; J2920; J2930; J3490; J7030; J7613; J7620; Q0144; 99285-25